=== PATIENT | male | born 1965 | race Caucasian/White ===

== ENCOUNTER 2024-07-05 07:57 | Emergency (ER) | payer OTHER, SELFPAY ==
[2024-07-05 07:59] VITALS: BP 135/87
[2024-07-05 08:31] VITALS: BP 106/77
[2024-07-05 08:32] VITALS: BMI 33.0
[2024-07-05 09:01] LABS: % Basophils 0.3 % (0-2); % Eosinophils 1.4 % (0-6); % Immature Granulocytes 0.4 % (0-0.5); % Lymphocytes 15.7 % (20.5-51.1); % Monocytes 6.6 % (1.7-9.3); % Neutrophils 75.6 % (42.2-75.2); Absolute Eosinophils 0.2 10^3/uL (0-0.7); Absolute Lymphocytes 1.8 10^3/uL (1.2-3.4); Absolute Monocytes 0.7 10^3/uL (0.1-0.6); Absolute Neutrophils 8.4 10^3/uL (1.4-6.5); Hematocrit 38.7 % (39.0-52.0); Hemoglobin 13.6 g/dL (13.0-18.0); Mean Corp Hgb Conc. 35.1 g/dL (33.0-37.0); Mean Corpuscular Hgb 31.1 pg (27.0-31.0); Mean Corpuscular Volume 88.6 fL (80.0-94.0); Mean Platelet Volume 9.5 fL (7.4-10.4); Nucleated Red Blood Cells % 0 % (-); Platelet Count 279 10^3/uL (130-400); Red Blood Cell Count 4.37 10^6/uL (4.70-6.10); Red Cell Dist. Width 12.7 % (11.5-14.5); White Blood Cell Count 11.1 10^3/uL (4.8-10.8)
--- NOTE | 2024-07-05 09:11 | ED.CVA ---
History of Present Illness
General
Chief Complaint: CVA/TIA Symptoms
Source: patient and spouse
Exam Limitations: none
Time Seen by Provider: 07/05/24 08:13
Onset of Stroke Symptoms
Onset of symptoms known: Yes
Date of onset of symptoms: 07/05/24
History of Present Illness
History of Present Illness:
58-year-old male with history of diabetes, hypertension, hypercholesterolemia who woke up around 648 this morning with pain down his entire left side. Patient states he has a knife feeling in his left bicep area. He also a tingling feeling in the
left face. Patient also admits he has pain into the left scalp. Patient states that he also felt like he may have had a left facial droop but it was not noted by his and the patient states he felt like it was there but states 'I know it was
not drooping, just felt like it was'. Patient reports that he also fell he had a little bit of weakness of his left arm. He slept on his right side last night. No vision changes. No speech changes. No headache. Patient does feel little bit
better but still does have pain in the left bicep. He did a little bit of substernal chest pain as well. That has resolved. He does have a history of hypertension, high cholesterol and diabetes. He admits that he does not take his cholesterol
medications because it gives him muscle aches and they have tried many different formulations without success.
Past History
Past History
ED Past Medical History: HTN, Hypercholesterolemia, NIDDM and Other (Lumbar disc disease)
ED Past Surgical History: Orthopedic
Social History
Tobacco: Former smoker
Phy Exam
Physical Exam
Physical Exam:
CONSTITUTIONAL Patient alert and oriented to person, place and time. Well-appearing. Vital signs reviewed.
HEAD atraumatic, normocephalic.
EYES eyelids normal to inspection, Pupils equally round and reactive to light, Extraocular muscles intact, Conjunctiva normal, Sclera normal. No field cuts
NECK normal range of motion, Trachea midline, no jugular venous distention.
RESPIRATORY CHEST No respiratory distress noted, Chest expansion equal, Bilateral breath sounds clear.
CARDIOVASCULAR regular rate and rhythm, Heart sounds normal.
BACK normal inspection, no obvious deformities
UPPER EXTREMITY range of motion normal, Motor strength normal, no cyanosis, no edema.
LOWER EXTREMITY range of motion normal, Motor strength normal, no cyanosis, no edema.
NEURO Speech normal, No focal motor deficits, [place] coma scale 15, Memory normal, Cranial Nerves intact to screening exam. Normal [id number]. No pronator drift.
SKIN skin warm, dry, and normal in color.
PSYCHIATRIC patient oriented to person place and time, Normal affect.
Course
Orders/Labs/Results
Orders:
Orders
07/05/24 08:32
Electrocardiogram (*1) Urgent
Reason for Study: Chest Pain
EKG- Treatment ONCE
07/05/24 08:43
CT Head W/o Iv Contrast Urgent
Comment:
Reason For Exam: L sided sensory changes
07/05/24 08:50
Cardiovascular Evaluation Urgent
Complete Blood Count/With Diff Urgent
Comprehensive Metabolic Panel Urgent
Ferritin Urgent
Folate Urgent
Glycohemoglobin (HgbA1c) Urgent
TSH Reflex To Free T4 Urgent
Troponin I Urgent
Vitamin B12 Urgent
07/05/24 09:45
CT Head & Neck Angio W/wo IV Urgent
Comment:
Reason For Exam: need CT-venogram, ? contralateral stenosis
07/05/24 09:57
Add On- LAB Routine
Tests Added?: folate, ferritin, TSH reflex, B12, lipid panel, hbA1c
07/05/24 09:59
Prochlorperazine [Compazine] 10 mg IV NOW STA
Abnormal Lab Results
07/05/24
08:50
WBC 11.1 H 10^3/uL
(4.8-10.8)
RBC 4.37 L 10^6/uL
(4.70-6.10)
Hct 38.7 L %
(39.0-52.0)
MCH 31.1 H pg
(27.0-31.0)
Absolute Neuts (auto) 8.4 H 10^3/uL
(1.4-6.5)
Absolute Monos (auto) 0.7 H 10^3/uL
(0.1-0.6)
Neutrophils % 75.6 H %
(42.2-75.2)
Lymphocytes % 15.7 L %
(20.5-51.1)
BUN 22 H mg/dl
(9-20)
Glucose 174 H mg/dl
(70-99)
07/05/24 08:50
07/05/24 08:50
Vital Signs
Initial and Last Documented VS:
Initial Vital Signs
Temp Pulse Resp BP Pulse Ox
97.7 F 77 16 135/87 98
07/05/24 07:59 07/05/24 07:59 07/05/24 07:59 07/05/24 07:59 07/05/24 07:59
Last Documented Vital Signs
Temp Pulse Resp BP Pulse Ox
97.7 F 80 14 111/95 95
07/05/24 07:59 07/05/24 10:00 07/05/24 10:00 07/05/24 10:00 07/05/24 10:00
MDM/Problems Addressed
Differential Diagnosis Includes:
TIA/CVA, ACS, peripheral neuropathy
*Radiology
Radiology exam reviewed: preliminary read by ED provider (No obvious intracranial hemorrhage) and radiology read reviewed (Hyperattenuation in the right parietal cortical venous sinus)
*Pulse Oximetry
Patient hypoxic: no
*EKG
Interpreted by ED Provider?: Yes
Interpretation: normal
Rate: normal
Rhythm: sinus
[place]: normal axis
Interval: normal interval
QRS Pattern: normal QRS
Ischemia: no ischemia
*Music Historian Interpretation
Rate: normal
Interpretation: normal
Rhythm: sinus
*Critical Care Note
Total Time (30-74mins, 75-104mins- exclusive of procedures): Not Applicable
Data Reviewed
Source: patient and spouse
Prescriptions/Medications Considered But Not Given:
Consider tnk but no focal motor deficits and NIH stroke score 0. He woke up with the symptoms of unknown exact onset
Patient Management
Discussion with other providers: Ed Tech (Case discussed with Dr. Adames of neurology)
Escalation/DeEscalation of care consider admission/obs:
58-year-old male presents as above. Neuroassessment exam is normal. Patient is well-appearing. CT noted. Patient was seen and examined by neurology who feels he is stable for discharge and continue aspirin as outpatient. Neurology does not feel
this is TIA/CVA. Recommended close follow-up.
ED Attending Note
-
Portions of this chart may have been created with voice recognition software.� Occasional wrong word or��sound alike� substitutions may have occurred due to the inherent limitations of voice recognition software.
Discharge Plan
Departure
Patient Disposition: Home (Routine Discharge)
Date of Disposition: 07/05/24
Time of Disposition: 11:08
Patient with high blood pressure during this ER visit?: Yes
Discharge Problem:
Paresthesia
Instructions: Paresthesia (DC), BLOOD PRESSURE
Prescriptions:
No Action
lidocaine [Lidoderm] 5 % adhesive patch,medicated
1 patch topical DAILY Qty: 15 0RF
oxycodone 5 mg tablet
5 mg PO Q8H PRN (Reason: pain) Qty: 10 0RF
Referrals:
Wil Hopkins MD [Family Provider] -
Activity Restrictions/Additional Instructions:
Please see your doctor in the next 1 week for follow-up and reevaluation. In addition, please follow-up with neurology in the next 2 to 3 weeks. Return immediately for motor weakness, speech changes, vision changes, worsening symptoms or any other
concerns. Please continue your aspirin daily.
Interventions
Interventions:
*Risk Screen - Suicide Last Done: 07/05/24 08:53
*General Assessment Last Done: 07/05/24 09:00
*Neglect/Abuse Screening Last Done: 07/05/24 08:53
ED- Pulmonary Assessment Last Done: 07/05/24 09:00
ED- Neurological Assessment Last Done: 07/05/24 09:00
ED- Cardiac Assessment Last Done: 07/05/24 09:00
ED Swallowing Screen Last Done: 07/05/24 09:00
Discharge Date and Time
Print Language: PARAGUAYAN
[2024-07-05 09:19] LABS: ALT (SGPT) 46 U/L (0-50); AST (SGOT) 40 U/L (17-59); Albumin 4.2 g/dl (3.5-5.0); Alkaline Phosphatase 75 U/L (38-126); Blood Urea Nitrogen 22 mg/dl (9-20); Calcium 9.4 mg/dl (8.4-10.2); Carbon Dioxide 23 mmol/L (22-30); Chloride 103 mmol/L (98-107); Estimated Creatinine Clearance > 125 ml/min; Glucose 174 mg/dl (70-99); Potassium 4.4 mmol/L (3.5-5.1); Sodium 139 mmol/L (135-145); Total Bilirubin 0.5 mg/dl (0.2-1.3); Total Protein 6.8 g/dl (6.3-8.2); eGFR > 60.00
[2024-07-05 09:33] LABS: Troponin I < 0.012 ng/ml
--- NOTE | 2024-07-05 09:40 | CON.NEURO4 ---
Addendum entered and electronically signed by Girish Adames MD 07/05/24 13:24:
Studies reviewed.
I have personally examined the patient. I reviewed and agree with the STEEL SAMPLER's Note.
My addenda:
Awake, alert, interactive. No acute distress.
Speech intact.
Follows 2-step requests w/o difficulty. No tremor.
Extra-ocular movements grossly intact.
Facial movements full and symmetric. Hearing intact to normal conversational volume.
Normal UE movements bilaterally.
Neck: full ROM.
Chest: no dyspnea
Heart: no JVD
Ext: (-) Clubbing, (-) Cyanosis, (-) Edema
IMPRESSIONS/RECOMMENDATIONS:
Abrupt onset of left hemibody sensory change including the head prior history of migraine with aura causing visual obscuration. Original symptoms are currently improving.
CT of head initially read as demonstrating right cortical vein occlusion.
Check CT venogram of head and neck, completed, and does not corroborate venous occlusion
Provide patient with prochlorperazine and attempts to reduce his current, mild, migraine
Consider use of rizatriptan for headache relief
No clear indication for additional neuroimaging
No indication patient will require antiplatelet or anticoagulation therapies
D/W patient / family / nursing
All questions answered.
Will continue to follow pending results
Original Note:
Documented by User: Basilia Siddiqui NP 07/05/24 11:04
Consultation - Neurology 4
-
CONSULTING PHYSICIAN: Girish Adames MD
REFERRING PHYSICIAN: ER/Dr. Douglas
DICTATED BY: MANOJ Moran
DATE/TIME OF REQUEST: 07/05/24
DATE/TIME OF CONSULTATION: 07/05/24
Reason for Consultation: Left-sided paresthesias
History of Present Illness:
This is a 58-year-old left-handed male who has presented to the hospital with report of left sided sensation changes. Patient reports that he went to bed last night at his baseline. He woke up several times throughout the night to use the bathroom
and felt his usual self. At 0630 he took a sip of water and had some coughing with oral intake. Then at 0648 he reports suddenly developing left shoulder discomfort/tingling down his arm and entire left leg including his foot. Moments later he
developed a novocaine sensation in his left face, ear, and neck. He also reports developing a bitemporal mild headache. On the drive to the ER he reports having transient sternal pain. On arrival in the ER, CT head was obtained and is suggestive of
a right parietal cortical venous sinus hypoattenuation. Currently, he reports the tingling sensation is still in his left hand/wrist, left foot, and left face. NIHSS is a 1 for mild sensation change. He is not a candidate for TNK/IAT due to low
NIHSS. He denies any dizziness, vision changes, speech difficulty, weakness, nausea/vomiting, photo/phonophobia, shortness of breath, and palpitations.
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 He typically take Excedrin and eats a banana for headache relief. His last ocular migraine
was two weeks ago, prior to that it had been years since he has had one. He reports having a herniated lumbar disc in March 2023 with associated RLE sciatica but reports that discomfort felt different than his current symptoms. He has never had
numbness associated with his ocular migraines in the past. 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 He denies
any history of TIA or stroke in the past. he is taking an aspirin 81mg daily for cardiac purposes. He reports being on 3-4 different statins in the past for hyperlipidemia and not tolerating them due to profound muscle weakness.
Past Medical History: HTN, HLD, GERD, insomnia, MASH, ocular migraines, chemical weapon exposure, GERD, statin intolerance
Surgical History: Lumbar discectomy 03/2023
Family History: Sister- migraines.
Social History: Former smoker. Rare alcohol. Denies illicit drug use.
Allergies: Statin intolerance- muscle weakness.
Home Medications: See below.
Review of Symptoms:
Patient denies any fever, headache, chest pain, shortness of breath, GI or symptoms.
�Per the HPI.�All systems are reviewed negative except above.
Physical Exam:
The patient is afebrile, abdomen is nondistended, breathing is unlabored, skin is warm and dry, no edema.
NIH Stroke Scale:
I performed the NIH stroke scale on the patient on 07/05/24 at 0945. The patient scored 1 points on the NIH stroke scale assessment, which were assigned as follows: See below.
Neurologic Examination:
The patient is awake, alert and oriented x 3. He is able to follow commands and answer questions appropriately. There is no aphasia or dysarthria. On cranial nerve assessment, pupils are 3 mm bilateral, round and reactive to light and
accommodation. Visual dawn are full. Extraocular movements are intact. Facial sensations are intact and bilaterally symmetrical, there is no facial asymmetry. Hearing is intact bilaterally to normal conversation volume. Tongue palate and uvula are
midline. Sternocleidomastoid strengths are full bilaterally. Motor strengths are 5/5 bilateral upper and lower extremities on medical research [place] scale. There is no drift or involuntary movement noted. Deep tendon reflexes are 1+ bilateral
upper and lower extremities and Babinski is absent bilaterally. Sensation of temperature is mildly reduced in distal bilateral lower extremities. Sensation of touch is mildly reduced in the left foot, hand, face. There was no extinction noted on
double simultaneous stimulation. Coordination is intact by finger to nose or heel to johnson bilaterally.
Lab Results: See below.
Neuro Imaging:
1. CT Head 07/05/24: Hyperattenuation within a right parietal cortical venous sinus, best seen on series 201 images 15-21. This may be artifactual, or may be related to dehydration. If venous sinus thrombosis is a clinical concern, consider
contrast-enhanced MRI of the brain. No focal infarct is appreciated.
2. CTA head/neck 07/05/24: Hyperattenuation within a right parietal cortical venous sinus, best seen on series 201 images 15-21. This may be artifactual, or may be related to dehydration. If venous sinus thrombosis is a clinical concern, consider
contrast-enhanced MRI of the brain. No focal infarct is appreciated.
Differentials for the patient's presentation include:
1. CTV negative for venous sinus thrombosis, no LVO.
2. Complicated migraine aura likely producing left-sided sensation changes.
3. Cannot entirely rule-out TIA or small ischemic infarct.
Patient has the following risk factors for their symptoms: HTN, HLD, age, hx ocular migraines
IV Tenecteplase/IAT candidacy: Not a candidate due to low NIHSS.
Recommendations:
-Provide prochlorperazine 10mg IV x1 now for headache.
-Continue home aspirin 81mg daily.
-Consider MRI brain noncontrast as an outpatient.
-Goal normoglycemia, hbA1c is pending.
-Lipid panel pending, will avoid initiating statin therapy as patient is intolerant.
-Checking blood work for metabolic abnormalities.
-Provide patient with a stroke education packet.
-Patient should follow-up with Neurology in the next 4 weeks, may see the STEEL SAMPLER or Dr. Adames.
Discussed patient care with: Dr. Adames, the patient, patient's spouse
Vital Signs and Labs
-
Vital Signs and Labs:
Vital Signs
Temp Pulse Resp BP Pulse Ox
97.7 F 80 14 111/95 95
07/05/24 07:59 07/05/24 10:00 07/05/24 10:00 07/05/24 10:00 07/05/24 10:00
Lab Results
07/05/24 08:50
07/05/24 08:50
Sodium 139 mmol/L (135-145) 07/05/24 08:50
Potassium 4.4 mmol/L (3.5-5.1) 07/05/24 08:50
BUN 22 mg/dl (9-20) H 07/05/24 08:50
Glucose 174 mg/dl (70-99) H 07/05/24 08:50
Calcium 9.4 mg/dl (8.4-10.2) 07/05/24 08:50
Medications
-
Home Medications
�Medication �Instructions �Recorded
lidocaine 5 % topical patch 1 patch topical DAILY #15 ea 02/01/23
(Lidoderm)
oxycodone 5 mg tablet 5 mg PO Q8H PRN pain #10 tabs 02/01/23
NIH Stroke Score
Subsequent NIH Scale
Date of Subsequent NIH Scale: 07/05/24
Time of Subsequent NIH Scale: 09:45
NIH Stroke Score
Level of Consciousness: 0 - Alert
LOC Questions: 0-Answers both correctly
LOC Commands: 0-Performs both correctly
Best Horizontal Gaze: 0-Normal
Visual Dawn: 0=Normal, no visual loss
Facial Palsy: 0=Normal, symmetrical
Motor - Right Arm: 0=No drift 10 seconds
Motor - Left Arm: 0=No drift 10 seconds
Motor - Right Le-No drift 5 seconds
Motor - Left Le-No drift 5 seconds
Limb Ataxia: 0-Absent
Sensation: 1-Mild loss
Best Language: 0-No aphasia
Dysarthria: 0-Normal
Extinction and Inattention: 0-No abnormality
Total Score:: 1
Modified [place] (mRS) Score
Modified [place] Scale (mRS): No significant disability. Able to carry out usual activities.
Score: 1
Alteplase Contraindication
Inclusion and Exclusion criteria reviewed: Yes
IAT Contraindications: NIHSS < 6

Documented by User: Girish Adames MD 07/05/24 13:19
NIH Stroke Score
NIH Stroke Score
Total Score:: 1
Modified [place] (mRS) Score
Score: 1
[2024-07-05 10:00] VITALS: BP 111/95
[2024-07-05] MEDS: COMPAZINE 10 MG IV (10:18)
[2024-07-05 11:09] LABS: HDL Cholesterol 34 mg/dl; LDL Cholesterol, Calculated 109 mg/dl; Total Cholesterol 197 mg/dl (50-199); Triglyceride 274 mg/dl (10-149); Very Low Density Lipoprotein 54 mg/dl (0-30)
[2024-07-05 12:28] LABS: Glycohemoglobin (HgbA1c) 7.1 % (4.0-5.6)
[2024-07-05 13:05] LABS: TSH Reflex To Free T4 0.83 uIU/ml (0.47-4.68)
[2024-07-05 13:08] LABS: Ferritin 47.3 ng/ml (17.9-464.0)
[2024-07-05 13:40] LABS: Folate 15.5 ng/ml (2.76-20); Vitamin B12 > 1000 pg/ml (239-931)
== END 2024-07-05 11:57 | disposition home or self-care (01) ==
LOC: EMR 07:57
PROVIDERS: EMERGENCY PHYSICIAN Emergency Medicine; FAMILY PHYSICIAN Family Medicine
DX: R20.2 Paresthesia of skin (principal); R07.89 Other chest pain; M79.622 Pain in left upper arm; W19.XXXA Unspecified fall, initial encounter; R05.9 Cough, unspecified; G43.909 Migraine, unspecified, not intractable, without status migrainosus; E11.9 Type 2 diabetes mellitus without complications; I10 Essential (primary) hypertension; E78.5 Hyperlipidemia, unspecified; K21.9 Gastro-esophageal reflux disease without esophagitis; M54.41 Lumbago with sciatica, right side; M51.26 Other intervertebral disc displacement, lumbar region; Z87.891 Personal history of nicotine dependence; Z79.82 Long term (current) use of aspirin
CPT/HCPCS: 99285; 96374; 70450; 70496; 70498; 80053; 80061; 82607; 82728; 82746; 83036; 84443; 84484; 85025; 93005; Q9967